=== PATIENT | female | born 1975 ===

== ENCOUNTER 2024-08-22 06:41 | Day surgery (SDC) | payer OTHER ==
[2024-08-22] MEDS ORDERED: ONDANSETRON HCL 2 MG/ML VIAL IV ONE (10:00)
[2024-08-22] MEDS ORDERED: DIPHENHYDRAMINE HCL 50 MG/ML VIAL 1ML IV ONE (10:00)
[2024-08-22] MEDS ORDERED: MIDAZOLAM HCL 2 MG/2 ML VIAL IV ONE (10:00)
[2024-08-22] MEDS ORDERED: fentaNYL CITRATE 50 MCG/ML AMPUL IV PUSH ONE (10:00)
== END 2024-08-22 12:40 | disposition home or self-care (01) ==
LOC: AMB-ENDOS 06:41
PROVIDERS: ATTEND Colon & Rectal Surgery
DX: D12.4 Benign neoplasm of descending colon (principal); K57.32 Diverticulitis of large intestine without perforation or abscess without bleeding; K62.5 Hemorrhage of anus and rectum; R19.4 Change in bowel habit